=== PATIENT | female | born 1975 | race Two or more races ===

== ENCOUNTER 2022-06-29 10:36 | Emergency (ER) | payer OTHER ==
[~2022-06-29] VITALS: Ht 162.6 cm; Wt 90.3 kg
[2022-06-29] MEDS ORDERED: SYNTHROID112 MCG PO (10:54)
[2022-06-29] MEDS ORDERED: PAXIL20 MG (10:54)
== END 2022-06-29 17:47 | disposition home or self-care (01) ==
LOC: ER 10:36
DX: N92.6 Irregular menstruation, unspecified (principal); K08.89 Other specified disorders of teeth and supporting structures; E03.9 Hypothyroidism, unspecified; Z88.6 Allergy status to analgesic agent; Z20.822 Contact with and (suspected) exposure to COVID-19

== ENCOUNTER 2022-07-03 09:39 | Emergency (ER) | payer OTHER ==
[~2022-07-03] VITALS: Ht 162.6 cm; Wt 89.8 kg
[~2022-07-03 09:39] MED LIST: PAXIL20 MG; SYNTHROID112 MCG PO
[2022-07-03] MEDS ORDERED: MEDROL2 MG (09:47)
== END 2022-07-03 15:52 | disposition home or self-care (01) ==
LOC: ER 09:39
DX: N83.299 Other ovarian cyst, unspecified side (principal); R10.2 Pelvic and perineal pain; Z88.6 Allergy status to analgesic agent; E03.8 Other specified hypothyroidism

== ENCOUNTER 2022-12-02 08:29 | Day surgery (SDC) | payer OTHER ==
[~2022-12-02] VITALS: Ht 162.6 cm; Wt 92.1 kg
[~2022-12-02 08:29] MED LIST changes: +MEDROL2 MG
== END 2022-12-02 16:50 | disposition home or self-care (01) ==
LOC: CIR.AMB 08:29
PROVIDERS: ATTEND Specialist
DX: N84.0 Polyp of corpus uteri (principal); N92.1 Excessive and frequent menstruation with irregular cycle; Z88.6 Allergy status to analgesic agent